=== PATIENT | female | born 1990 | race Caucasian/White ===

== ENCOUNTER 2017-03-31 09:14 | Emergency (ER) | payer BC | END 2017-03-31 11:05 | disposition home or self-care (01) | LOC: E/R 11:05 | DX: R51 Headache (principal); R11.0 Nausea; R05 Cough | CPT/HCPCS: 99284; Z7502 ==

== ENCOUNTER 2017-05-26 07:57 | Emergency (ER) | payer BC ==
[2017-05-26] MEDS: ACETAMINOPHEN 500 MG TAB PO (08:56)
== END 2017-05-26 09:34 | disposition home or self-care (01) ==
LOC: FTE 07:57
DX: J02.9 Acute pharyngitis, unspecified (principal)
CPT/HCPCS: 99283; Z7502